=== PATIENT | male | born 1980 ===

== ENCOUNTER 2017-06-18 14:43 | Emergency (ER) | payer OTHER ==
[2017-06-18 14:51] VITALS: TEMP 98.8; O2SAT 100
--- NOTE | 2017-06-18 15:31 | C.PDOC ---
History Of Present Illness <Rama Mendoza - Last Filed: 06/18/17 16:22> <Nicki Diane - Last Filed: 06/18/17 16:33> 36 year old male with no past medical history presents with 5 days history of a tender mass on the back of his neck. He states that prior he had "something there" for about 3 years but then in the past 5 days it has grown in size and has become tender. He states that he thinks "it is from the oil in my hair". He says that sometimes if it is irritated it will drain fluid. He has not taken any medications to help with the pain. He has been taking Amoxicillin every 8 hours for 5 days which he bought previously in the [place]. He denies fevers/chills, rashes, or any other complaints. (Nicki Diane) <Rama Mendoza - Last Filed: 06/18/17 16:22> History Per: Patient History/Exam Limitations: no limitations Onset/Duration Of Symptoms: Days Current Symptoms Are (Timing): Still Present Location Of Injury: Posterior: Neck Quality Of Symptoms: Painful Severity: Mild Pain Scale Rating Of: 5 <Nicki Diane - Last Filed: 06/18/17 16:33> Time Seen by Provider: 06/18/17 15:05 Chief Complaint (Nursing): Abnormal Skin Integrity Past Medical History - Medical History PMH: No Chronic Diseases Surgical History: No Surg Hx Family History: States: No Known Family Hx - Social History Hx Tobacco Use: No Hx Alcohol Use: No Hx Substance Use: No - Immunization History Hx Tetanus Toxoid Vaccination: No Hx Influenza Vaccination: No Hx Pneumococcal Vaccination: No <Nicki Diane - Last Filed: 06/18/17 16:33> Vital Signs: Last Vital Signs Temp 98.8 F 06/18/17 14:50 Pulse 117 H 06/18/17 14:50 Resp 20 06/18/17 14:50 BP 131/94 H 06/18/17 14:50 Pulse Ox 100 06/18/17 16:14 Review Of Systems Constitutional: Negative for: Fever, Chills Eyes: Negative for: Vision Change Cardiovascular: Negative for: Chest Pain, Palpitations Respiratory: Negative for: Cough, Shortness of Breath Gastrointestinal: Negative for: Nausea, Vomiting, Abdominal Pain Genitourinary: Negative for: Dysuria Skin: Positive for: Other (mass on back of neck) Neurological: Negative for: Weakness, Numbness <Nicki Diane - Last Filed: 06/18/17 16:33> Physical Exam - Physical Exam Appears: Well, Non-toxic, No Acute Distress Skin: Normal Color, Warm, Dry, No Rash Head: Atraumatic, Normacephalic Eye(s): bilateral: Normal Inspection Oral Mucosa: Moist Neck: Other (3 cm well defined induated lesion on posterior R side neck, mildly tender) Cardiovascular: Rhythm Regular Respiratory: Normal Breath Sounds Gastrointestinal/Abdominal: Normal Exam, Bowel Sounds, Soft, No Tenderness Back: Normal Inspection Extremity: No Tenderness Neurological/Psych: Oriented x3, Normal Speech Gait: Steady <Nicki Diane - Last Filed: 06/18/17 16:33> ED Course And Treatment O2 Sat by Pulse Oximetry: 100 <Nicki Diane - Last Filed: 06/18/17 16:33> Medical Decision Making <Rama Mendoza - Last Filed: 06/18/17 16:22> <Nicki Diane - Last Filed: 06/18/17 16:33> Medical Decision Making: Plan: Likely lipoma or sebaceous cyst. Offered needle aspiration. Patient would rather follow up outpatient. (Nicki Diane) Disposition - Disposition Disposition Time: 16:22 - POA Present On Arrival: None <Rama Mendoza - Last Filed: 06/18/17 16:22> <Nicki Diane - Last Filed: 06/18/17 16:33> - Disposition Referrals: [facility] [Outside] Disposition: HOME/ ROUTINE Condition: GOOD Additional Instructions: Patient is to take Tylenol as needed for pain. He is to follow up at the [facility] and will need surgery referral for lipoma removal. Patient was instructed to return to the ED if symptoms persist or he develop fever or chills. Instructions: Lipoma (ED) Forms: Gen Discharge Inst Slovak - Clinical Impression Clinical Impression: Sebaceous cyst, Lipoma
[2017-06-18 16:36] VITALS: BP 132/82; PULSE 98; RESP 18
== END 2017-06-18 16:32 | disposition home or self-care (01) ==
LOC: C.ER 14:43
DX: L72.3 Sebaceous cyst (principal); D17.0 Benign lipomatous neoplasm of skin and subcutaneous tissue of head, face and neck

== ENCOUNTER 2017-07-07 15:03 | Emergency (ER) | payer OTHER ==
[2017-07-07 15:03] VITALS: BMI 35.2
--- NOTE | 2017-07-07 15:56 | C.PDOC ---
History Of Present Illness 36 yr old male presents to the ER for evaluation of a wound which was I&D. Patient states he had surgery by for lipoma abscess to the right side of the neck. Patient states he was concerned the packing had come out and wanted to get it checked out. Denies fever, nausea, vomiting, neck pain, back pain, weakness or numbness. Time Seen by Provider: 07/07/17 15:38 Chief Complaint (Nursing): Wound Check History Per: Patient History/Exam Limitations: no limitations Onset/Duration Of Symptoms: Days Ago Past Medical History Reviewed: Historical Data, Nursing Documentation, Vital Signs Vital Signs: Last Vital Signs Temp 97.3 F L 07/07/17 16:21 Pulse 70 07/07/17 16:21 Resp 16 07/07/17 16:21 BP 129/85 07/07/17 16:21 Pulse Ox 98 07/07/17 16:21 Family History: States: No Known Family Hx - Social History Hx Tobacco Use: No Hx Alcohol Use: No Hx Substance Use: No - Immunization History Hx Tetanus Toxoid Vaccination: No Hx Influenza Vaccination: No Hx Pneumococcal Vaccination: No Review Of Systems Except As Marked, All Systems Reviewed And Found Negative. Constitutional: Negative for: Fever Gastrointestinal: Negative for: Nausea, Vomiting Musculoskeletal: Negative for: Neck Pain, Back Pain Neurological: Negative for: Weakness, Numbness Physical Exam - Physical Exam Appears: Non-toxic, No Acute Distress Skin: Warm, Dry, No Rash, Other ((+) Neck Right Side - 1cm wound with packing in place. No erythema. No draining. ) Head: Atraumatic, Normacephalic Oral Mucosa: Moist Neck: Normal, Normal ROM, Supple Extremity: Normal ROM, No Swelling Neurological/Psych: Oriented x3, Normal Speech, Normal Motor Medical Decision Making Medical Decision Making: Patient was instructed to follow up with the surgeron as scheduled in 2 days, Disposition - Disposition Referrals: [facility] [Outside] Disposition: HOME/ ROUTINE Disposition Time: 16:11 Condition: GOOD Additional Instructions: Follow up with the medical doctor within 1-2 days. return if worsened. Instructions: Acute Wound Care (ED) Forms: [employer] [facility] (Portuguese) - Clinical Impression Clinical Impression: Wound check, abscess - PA / SPECIAL EDUCATION PRESCHOOL TEACHER / Resident Statement MD/DO has reviewed & agrees with the documentation as recorded. - Scribe Statement The provider has reviewed the documentation as recorded by the Scribe Jesica Mendez All medical record entries made by the Scribe were at my direction and personally dictated by me. I have reviewed the chart and agree that the record accurately reflects my personal performance of the history, physical exam, medical decision making, and the department course for this patient. I have also personally directed, reviewed, and agree with the discharge instructions and disposition.
[2017-07-07 16:23] VITALS: BP 129/85; PULSE 70; RESP 16; TEMP 97.3; O2SAT 98
== END 2017-07-07 16:23 | disposition home or self-care (01) ==
LOC: C.ER 15:03
DX: Z48.01 Encounter for change or removal of surgical wound dressing (principal)

== ENCOUNTER 2017-08-28 11:05 | Day surgery (SDC) | payer OTHER ==
[2017-08-18 14:46] VITALS: BMI 33.3
[2017-08-28] MEDS ORDERED: Lidocaine 1% Inj (20ml) ONE (13:23)
[2017-08-28] MEDS ORDERED: Bupivacaine/Epi 0.25%-1:200,000 10 ml PF inj IJ ONE (13:23)
[2017-08-28] MEDS ORDERED: ceFAZolin IV 2 gm in Dextrose 1 GM/50 ML BAG IVPB ONE (13:24)
[2017-08-28] MEDS ORDERED: Lactated Ringer's 1,000 ML IV ONE (13:30)
[2017-08-28] MEDS ORDERED: Midazolam 2 MG/2 ML VIAL ONE (13:32)
[2017-08-28] MEDS ORDERED: Propofol 10 mg/ml Inj (20 ML) ONE (13:32)
[2017-08-28] MEDS ORDERED: HYDROmorphone 0.5 mg/0.5 ml ISec IVP PRN (14:14)
--- NOTE | 2017-08-28 14:34 | PCM.SURG1 ---
Surgeon's Initial Post Op Note - Surgeon's Notes Surgeon: Dr. Arcos Bailer Operators Supervisor: Veronica Avila Type of Anesthesia: Local Anesthesia Administered By: Liz Pre-Operative Diagnosis: Sebaceous Cyst on neck Operative Findings: Sebaceous cyst 1 by 1 cm Post-Operative Diagnosis: Sebaceous cyst on neck Operation Performed: Excision of sebaceous cyst Specimen/Specimens Removed: Sebaceous cyst Estimated Blood Loss: EBL {In ML}: 1 Blood Products Given: N/A Drains Used: No Drains Post-Op Condition: Good Date of Surgery/Procedure: 08/28/17 Time of Surgery/Procedure: 14:33
[2017-08-28 14:49] VITALS: RESP 18; TEMP 97; O2SAT 100
[2017-08-28 15:21] VITALS: BP 124/80; PULSE 83
--- NOTE | 2017-08-31 06:27 | OP ---
PROCEDURE DATE: 08/28/2017 PREOPERATIVE DIAGNOSIS: Sebaceous cyst of the neck approximately 3 x 3 cm size. POSTOPERATIVE DIAGNOSIS: Sebaceous cyst of the neck approximately 4 x 3 cm size. PROCEDURES DONE: 1. Excision of sebaceous cyst of the posterior right neck 4 x 3 cm size. 2. Layered closure of the wound approximately 4 x 2 cm size. SURGEON: Freddie Arcos MD AUTOMOTIVE WHOLES[employer]S ADVISOR: JUAREZ KingY2 resident. TYPE OF ANESTHESIA: Local anesthesia plus sedation. ESTIMATED BLOOD LOSS: Around 10 mL. DRAINS: None. PATHOLOGY: Sebaceous cyst was sent intact for the pathology. COMPLICATIONS: None. INTRAOPERATIVE FINDINGS: The patient had approximately 4 x 3 cm irregular shaped large sebaceous cyst of the right posterior neck. DESCRIPTION OF PROCEDURE: On intraoperative steps, this is a 36-year-old male who was diagnosed with the sebaceous cyst of the right posterior neck and the patient was treated with IV antibiotics, as well as initial drainage and after resolution of the infection the patient was consented for the excision of sebaceous cyst and brought to the OR, placed in supine position, after induction of the anesthesia, the neck was prepped and draped in usual sterile fashion. An elliptical incision was made on the posterior right neck approximately 4 cm in size, upper and lower flap was created and medial and lateral dissection was done and sebaceous cyst was completely excised from underlying fascia and muscles and it was sent to the table for the pathology. The wound was irrigated and proper hemostasis was achieved. Now the cavity was closed with complex multilayer closure. Upper and lower flap was sutured to the underlying fascia and the muscles. The subcutaneous with underlying fascia, another layer of subcutaneous with 3-0 Vicryl, skin with the 4-0 Monocryl, and another layer of skin with 4-0 nylon interrupted suture and dry sterile dressing was applied. The patient tolerated the procedure well. Count of instrument was correct. There was no apparent complications. Freddie Arcos MD
== END 2017-08-28 15:21 | disposition home or self-care (01) ==
LOC: C.SDS 11:05
PROVIDERS: ATTEND Surgery Surgical Critical Care
DX: L72.3 Sebaceous cyst (principal)
CPT/HCPCS: 21556; 88304; J0690; J2250; J2704; J3010; J7120

== ENCOUNTER 2017-09-24 09:31 | Emergency (ER) | payer OTHER ==
[2017-09-24 09:31] VITALS: BMI 33.3
--- NOTE | 2017-09-24 09:55 | C.PDOC ---
History Of Present Illness 36 year old male presents to the ED for suture removal. Patient was seen by Dr. Arcos around 2 weeks ago for suture removal after undergoing resection of a cyst to the right base of his scalp. Following the suture removal, patient began noticing a sensation that there is still one stitch left, and presents to the ED for further evaluation. Patient denies fever, chills, pain, itching, swelling or drainage near wound site. Time Seen by Provider: 09/24/17 09:47 Chief Complaint (Nursing): Suture/Staple Removal History Per: Patient History/Exam Limitations: no limitations Current Symptoms Are (Timing): Still Present Location Of Injury: Posterior: Neck Quality Of Symptoms: denies: Painful, Itching, Swollen, Draining Additional History Per: Patient Past Medical History Reviewed: Historical Data, Nursing Documentation, Vital Signs Vital Signs: Last Vital Signs Temp 98.1 F 09/24/17 09:55 Pulse 94 H 09/24/17 09:55 Resp 18 09/24/17 09:55 BP 156/89 H 09/24/17 09:55 Pulse Ox 99 09/24/17 09:55 - Medical History PMH: Gastritis ("ON AND OFF"-NO MEDS. AT THIS TIME(08/20/15)) Denies: Chronic Kidney Disease Surgical History: Endoscopy Family History: States: Unknown Family Hx - Social History Hx Tobacco Use: No Hx Alcohol Use: No Hx Substance Use: No - Immunization History Hx Tetanus Toxoid Vaccination: No Hx Influenza Vaccination: No Hx Pneumococcal Vaccination: No Review Of Systems Constitutional: Negative for: Fever, Chills Skin: Positive for: Other (suture removal from right base of scalp ) Physical Exam - Physical Exam Appears: Non-toxic, No Acute Distress Skin: Normal Color, Warm, Dry Head: Atraumatic, Normacephalic Eye(s): bilateral: Normal Inspection Neck: Other (well-healed incision to base of right scalp with outward protrusion of one clear (possibly absorbable) suture ) Neurological/Psych: Oriented x3, Normal Speech, Normal Cognition ED Course And Treatment O2 Sat by Pulse Oximetry: 99 (on RA) Pulse Ox Interpretation: Normal Medical Decision Making Medical Decision Making: Progress: One suture removed from right base of scalp by me. Patient tolerated well with no complaints. Disposition Counseled Patient/Family Regarding: Diagnosis - Disposition Referrals: Freddie Arcos MD [Staff Provider] - Disposition: HOME/ ROUTINE Disposition Time: 09:55 Condition: STABLE Forms: [facility] (Grenadian), Gen Discharge Inst Grenadian - POA Present On Arrival: None - Clinical Impression Clinical Impression: Removal of suture - Scribe Statement The provider has reviewed the documentation as recorded by the Scribe (Rocio Roa) Provider Attestation: All medical record entries made by the Scribe were at my direction and personally dictated by me. I have reviewed the chart and agree that the record accurately reflects my personal performance of the history, physical exam, medical decision making, and the department course for this patient. I have also personally directed, reviewed, and agree with the discharge instructions and disposition.
[2017-09-24 09:57] VITALS: BP 156/89; PULSE 94; RESP 18; TEMP 98.1; O2SAT 99
== END 2017-09-24 10:05 | disposition home or self-care (01) ==
LOC: C.ER 09:31
DX: Z48.02 Encounter for removal of sutures (principal)

== ENCOUNTER 2017-11-16 08:08 | Emergency (ER) | payer OTHER ==
[2017-11-16 08:09] VITALS: BMI 33.3
[2017-11-16 08:13] VITALS: RESP 16; O2SAT 100
--- NOTE | 2017-11-16 09:15 | C.PDOC ---
History Of Present Illness 36 year old male with a PMHx of excision of sebaceous cyst on 08/28/[address] Arcos presents to the ED with complaints of drainage from surgery site since yesterday. Patient reports patient was seen last month by Dr. Arcos because he felt the site was not healing well, patient was reassured by Dr. Arcos to give the healing more time. Patient completed a course of Amoxicillin and states no relief last month. Patient denies pain, fever, chills, or other complaints at this time. Time Seen by Provider: 11/16/17 08:22 Chief Complaint (Nursing): ENT Problem History Per: Patient History/Exam Limitations: no limitations Onset/Duration Of Symptoms: Persistent (1 month), Worse Since (yesterday) Current Symptoms Are (Timing): Still Present Previous Symptoms: Prior Surgery (excision of sebaceous cyst) Associated Symptoms: None Exacerbating Factor(s): Nothing Recent travel outside of the [place]: No Additional History Per: Prior Records Past Medical History Reviewed: Historical Data, Nursing Documentation, Vital Signs Vital Signs: Last Vital Signs Temp 99.0 F 11/16/17 09:40 Pulse 94 H 11/16/17 09:40 Resp 16 11/16/17 09:40 BP 128/87 11/16/17 09:40 Pulse Ox 100 11/16/17 15:41 - Medical History PMH: Gastritis ("ON AND OFF"-NO MEDS. AT THIS TIME(08/20/15)) Surgical History: Endoscopy Family History: States: Unknown Family Hx - Social History Hx Tobacco Use: No Hx Alcohol Use: No Hx Substance Use: No - Immunization History Hx Tetanus Toxoid Vaccination: No Hx Influenza Vaccination: No Hx Pneumococcal Vaccination: No Review Of Systems Constitutional: Negative for: Fever, Chills Cardiovascular: Negative for: Chest Pain, Palpitations Respiratory: Negative for: Cough, Shortness of Breath Gastrointestinal: Negative for: Nausea, Vomiting, Abdominal Pain, Diarrhea Skin: Positive for: Other (drainage from cyst removal site) Physical Exam - Physical Exam Appears: Non-toxic, No Acute Distress Skin: Warm, Dry, No Rash, Other ((+) mildly indurated healed incision to the base of the right scalp with no erythema, fluctance, or drainage) Head: Atraumatic, Normacephalic, No Tenderness, No Swelling Eye(s): bilateral: Normal Inspection, PERRL, EOMI Nose: Normal Oral Mucosa: Moist Neck: Supple Chest: Symmetrical Extremity: Normal ROM, No Tenderness Neurological/Psych: Oriented x3, Normal Speech, Normal Cognition ED Course And Treatment O2 Sat by Pulse Oximetry: 100 (RA) Pulse Ox Interpretation: Normal Medical Decision Making Medical Decision Making: Patient was evaluated by Customer Service Correspondence Clerk , Dr Ward, who notes no abx needed and pt can f/u in clinic on Thursday. Disposition - Disposition Referrals: Freddie Arcos MD [Staff Provider] - Disposition: HOME/ ROUTINE Disposition Time: 09:23 Condition: STABLE Additional Instructions: Follow up in the clinic with Dr Stanley on Thursday next week. Return to ER if symptoms persist or worsen . Apply warm compresses. Farzana un seguimiento en la clnica con el Dr. Stanley el baljeet de la prxima semana. Regrese a la den de emergencias si los sntomas persisten o empeoran. Aplique compresas tibias. Instructions: Acute Wound Care (ED) Forms: [employer] (Albanian) Print Language: MARTINIQUAIS - Clinical Impression Clinical Impression: Wound check, abscess - PA / LAB INSTRUCTOR / Resident Statement MD/DO has reviewed & agrees with the documentation as recorded. - Scribe Statement The provider has reviewed the documentation as recorded by the Scribe Amelie Holt All medical record entries made by the Scribe were at my direction and personally dictated by me. I have reviewed the chart and agree that the record accurately reflects my personal performance of the history, physical exam, medical decision making, and the department course for this patient. I have also personally directed, reviewed, and agree with the discharge instructions and disposition.
[2017-11-16 09:40] VITALS: BP 128/87; PULSE 94; TEMP 99
== END 2017-11-16 09:40 | disposition home or self-care (01) ==
LOC: C.ER 08:08
DX: Z51.89 Encounter for other specified aftercare (principal); L02.91 Cutaneous abscess, unspecified

== ENCOUNTER 2018-01-01 13:42 | Emergency (ER) | payer OTHER, SELFPAY ==
[2018-01-01 13:42] VITALS: BMI 33.3
[2018-01-01 13:56] VITALS: TEMP 98.2; O2SAT 100
[2018-01-01] MEDS ORDERED: Belladonna-Phenobarbital PO STA (14:33)
[2018-01-01] MEDS ORDERED: Aluminum Hydroxide/Magnesium Hydroxide Susp (30 mL) PO STA (14:33)
[2018-01-01] MEDS ORDERED: Sodium Chloride 0.9% 1,000 ML IV ONE (14:33)
[2018-01-01] MEDS ORDERED: Aluminum Hydroxide/Magnesium Hydroxide Susp (30 mL) ONE (15:07)
[2018-01-01] MEDS ORDERED: Belladonna-Phenobarbital ONE (15:07)
[2018-01-01] MEDS ORDERED: Sodium Chloride 0.9% 1,000 ML ONE (15:08)
[2018-01-01 15:32] LABS: EOS % 0.1 % (0.0-4.0); LYMPH # 1.3 K/uL (1.0-4.3); MONO # 0.4 K/uL (0.0-0.8); RBC 5.22 Mil/uL (4.40-5.90)
[2018-01-01 15:42] LABS: BASO % 0.4 % (0.0-2.0); HEMOGLOBIN 16.3 g/dL (12.0-18.0); LYMPH % 12.8 % (20.0-40.0); MEAN CELL VOLUME 88.6 fL (80.0-94.0); MEAN CORPUSCULAR HEMOGLOBIN 31.2 pg (27.0-31.0); MEAN CORPUSCULAR HGB CONC 35.2 g/dL (33.0-37.0); MEAN PLATELET VOLUME 7.7 fL (7.2-11.7); NEUT # 8.5 K/uL (1.8-7.0); NEUT % 82.7 % (50.0-75.0); NRBC % 0.2 % (0.0-2.0); RED CELL DISTRIBUTION WIDTH 12.9 % (11.5-14.5); WHITE BLOOD COUNT 10.3 K/uL (4.8-10.8)
[2018-01-01 16:32] LABS: ALB/GLOB RATIO 1.2 (1.0-2.1); ALBUMIN 4.3 g/dL (3.5-5.0); ALT/SGPT 45 U/L (21-72); AST/SGOT 39 U/L (17-59); BLOOD UREA NITROGEN 12 mg/dL (9-20); CALCIUM 9.3 mg/dl (8.6-10.4); GFR AFRICAN-AMERICAN > 60; GFR NON-AFRICAN AMERICAN > 60; LIPASE 235 U/L (23-300)
[2018-01-01 16:56] VITALS: BP 129/78; PULSE 89; RESP 18
--- NOTE | 2018-01-01 16:57 | C.PDOC ---
History Of Present Illness 37 y/o male, with history of epigastritis, presents to the ER complaining of epigastric pain which has been present for 1 day.Patient states he also had 3 episodes of vomiting and mild nausea today. Patient denies having fever, blood in stool/urine, and change in diet. Chief Complaint (Nursing): Abdominal Pain History Per: Patient History/Exam Limitations: no limitations Onset/Duration Of Symptoms: Days Current Symptoms Are (Timing): Still Present Severity: Moderate Past Medical History Reviewed: Historical Data, Nursing Documentation, Vital Signs Vital Signs: Last Vital Signs Temp 98.2 F 01/01/18 13:51 Pulse 89 01/01/18 16:56 Resp 18 01/01/18 16:56 BP 129/78 01/01/18 16:56 Pulse Ox 100 01/01/18 17:10 - Medical History PMH: Gastritis ("ON AND OFF"-NO MEDS. AT THIS TIME(08/20/15)) Denies: Chronic Kidney Disease Surgical History: Endoscopy Family History: States: No Known Family Hx - Social History Hx Tobacco Use: No Hx Alcohol Use: No Hx Substance Use: No - Immunization History Hx Tetanus Toxoid Vaccination: No Hx Influenza Vaccination: No Hx Pneumococcal Vaccination: No Review Of Systems Except As Marked, All Systems Reviewed And Found Negative. Constitutional: Negative for: Fever, Chills Gastrointestinal: Positive for: Vomiting, Abdominal Pain Genitourinary: Negative for: Dysuria, Hematuria Physical Exam - Physical Exam Appears: Non-toxic, No Acute Distress Skin: Normal Color, Warm Head: Atraumatic, Normacephalic Eye(s): bilateral: Normal Inspection Nose: Normal Oral Mucosa: Moist Neck: Supple Chest: Symmetrical Cardiovascular: Rhythm Regular Respiratory: Normal Breath Sounds, No Accessory Muscle Use, No Rales, No Rhonchi , No Wheezing Gastrointestinal/Abdominal: Normal Exam, Soft, Tenderness (epigastric tenderness ) Extremity: Normal ROM Neurological/Psych: Oriented x3, Normal Speech, Normal Motor, Normal Sensation ED Course And Treatment - Laboratory Results Result Diagrams: 01/01/18 15:29 01/01/18 15:29 O2 Sat by Pulse Oximetry: 100 (RA) Pulse Ox Interpretation: Normal Medical Decision Making Medical Decision Making: Plan: --Labs --Pepcid --Zofran Disposition - Disposition Referrals: [facility] [Outside] [facility] [Outside] Disposition: HOME/ ROUTINE Disposition Time: 16:30 Condition: IMPROVED Additional Instructions: Thank you for letting us take care of you today. The emergency medical care you received today was directed at your acute symptoms. If you were prescribed any medication, please fill it and take as directed. It may take several days for your symptoms to resolve. Return to the Emergency Department if your symptoms worsen, do not improve, or if you have any other problems. Please contact your doctor or call one of the physicians/clinics you have been referred to that are listed on the Patient Visit Information form that is included in your discharge packet. Bring any paperwork you were given at discharge with you along with any medications you are taking to your follow up visit. Our treatment cannot replace ongoing medical care by a primary care provider (PCP) outside of the emergency department. Thank you for allowing the [facility] team to be part of your care today. Follow up with the clinic in 3-4 days for re-evaluation and further management. Delmy por dejarnos atenderlo hoy. La atencin mdica de emergencia que recibi hoy estaba dirigida a mari sntomas agudos. Si le prescribieron algn medicamento, llnelo y tome segn las indicaciones. Mari sntomas pueden tardar varios armando en resolverse. Regrese al Departamento de Emergencia si mari s ntomas empeoran, no mejoran o si tiene algn otro problema. Comunquese con alvarado mdico o llame a андрей de los mdicos / clnicas a los que sewell sido referido que figura en el formulario de Informacin de visita del paciente que se incluye en alvarado paquete de curry. Traiga todos los documentos que recibi al momento del curry junto con los medicamentos que est tomando en alvarado visita de seguimiento. Nuestro tratamiento no puede reemplazar la atencin mdica en curso por parte de un proveedor de atencin primaria (PCP) fuera del departamento de emergencias. Delmy por permitir que el equipo de [facility] sea parte de alvarado cuidado hoy. Farzana un seguimiento con la clnica en 3-4 armando para jimmy nueva evaluacin y ms administracin. Prescriptions: Ranitidine HCl [Zantac] 150 mg PO BID #20 tablet Instructions: Gastritis (ED) Forms: Gen Discharge Inst Australian Print Language: YORUBA - Clinical Impression Clinical Impression: Gastritis - Scribe Statement The provider has reviewed the documentation as recorded by the Scribe Doris Chávez Provider Attestation: All medical record entries made by the Scribe were at my direction and personally dictated by me. I have reviewed the chart and agree that the record accurately reflects my personal performance of the history, physical exam, medical decision making, and the department course for this patient. I have also personally directed, reviewed, and agree with the discharge instructions and disposition.
== END 2018-01-01 16:56 | disposition home or self-care (01) ==
LOC: C.ER 13:42
DX: K29.70 Gastritis, unspecified, without bleeding (principal)
CPT/HCPCS: 80053; 83690; 85025; 96361; 96374; 96375; 99284; J2405; J7040

== ENCOUNTER 2018-01-02 05:55 | Emergency (ER) | payer SELFPAY ==
[2018-01-02 05:56] VITALS: BMI 33.3
[2018-01-02 06:04] VITALS: BP 137/98; PULSE 85; RESP 18; TEMP 97.9; O2SAT 100
--- NOTE | 2018-01-02 06:13 | C.PDOC ---
History Of Present Illness 37 year old male with PMHx of gastric ulcers presents to the ED c/o epigastric pain. Patient reports he was seen in the ED on 12/31/2016 and states that his symptoms have not improved since. Patient states his pain worsened. Patient denies fever, chills, nausea, vomit, diarrhea, back pain. Chief Complaint (Nursing): Abdominal Pain History Per: Patient History/Exam Limitations: no limitations Onset/Duration Of Symptoms: Days Current Symptoms Are (Timing): Still Present Location Of Pain/Discomfort: Diffuse Radiation Of Pain To:: None Quality Of Discomfort: "Pain" Exacerbating Factors: None Alleviating Factors: None Recent travel outside of the [place]: No Additional History Per: Patient Past Medical History Reviewed: Historical Data, Nursing Documentation, Vital Signs Vital Signs: Last Vital Signs Temp 97.9 F 01/02/18 06:01 Pulse 85 01/02/18 06:01 Resp 18 01/02/18 06:01 BP 137/98 H 01/02/18 06:01 Pulse Ox 100 01/02/18 06:56 - Medical History PMH: Gastritis ("ON AND OFF"-NO MEDS. AT THIS TIME(08/20/15)) Denies: Chronic Kidney Disease Surgical History: Endoscopy Family History: States: Unknown Family Hx - Social History Hx Tobacco Use: No Hx Alcohol Use: No Hx Substance Use: No - Immunization History Hx Tetanus Toxoid Vaccination: No Hx Influenza Vaccination: No Hx Pneumococcal Vaccination: No Review Of Systems Constitutional: Negative for: Fever, Chills Cardiovascular: Negative for: Chest Pain, Palpitations Respiratory: Negative for: Cough, Shortness of Breath Gastrointestinal: Positive for: Abdominal Pain. Negative for: Nausea, Vomiting , Diarrhea Musculoskeletal: Negative for: Back Pain Skin: Negative for: Rash Physical Exam - Physical Exam Appears: Non-toxic, No Acute Distress Skin: Normal Color, Warm, Dry Head: Atraumatic, Normacephalic Eye(s): bilateral: Normal Inspection Nose: No Discharge, No Deformity Oral Mucosa: Moist Neck: Normal ROM, Supple Chest: Symmetrical Cardiovascular: Rhythm Regular, No Murmur Respiratory: Normal Breath Sounds, No Rales, No Rhonchi, No Wheezing Gastrointestinal/Abdominal: Soft, Tenderness (epigastric), No Guarding, No Rebound Extremity: Normal ROM, No Deformity, No Swelling Neurological/Psych: Oriented x3, Normal Speech, Normal Cognition Gait: Steady ED Course And Treatment - Laboratory Results Result Diagrams: 01/02/18 06:32 01/02/18 06:32 O2 Sat by Pulse Oximetry: 100 (On RA) Pulse Ox Interpretation: Normal Medical Decision Making Medical Decision Making: Impression: abdominal pain Plan: * Labs * Carafate 1 gm PO * Pepcid 20 mg PO Disposition Counseled Patient/Family Regarding: Diagnosis - Disposition Referrals: [facility] [Outside] Disposition: HOME/ ROUTINE Disposition Time: 06:45 Condition: STABLE Prescriptions: Pantoprazole Sodium [Protonix] 40 mg PO DAILY #20 ect Phenobarb/Hyoscy/Atropine/Scop [ Tablet] 16.2 mg PO Q6 #14 tablet Sucralfate [Carafate Oral Susp] 2 tsp PO QID #200 ml Sucralfate [Carafate] 1 gm PO BID #14 oral.susp Instructions: Gastritis (DC), Diet for Ulcers and Gastritis (GEN), Abdominal Pain (ED) Forms: [facility] (Chilean), Gen Discharge Inst Albanian Print Language: URUGUAYAN - POA Present On Arrival: None - Clinical Impression Clinical Impression: Abdominal pain, Gastritis - Scribe Statement The provider has reviewed the documentation as recorded by the Scribe Prakash Mtz All medical record entries made by the Angelibe were at my direction and personally dictated by me. I have reviewed the chart and agree that the record accurately reflects my personal performance of the history, physical exam, medical decision making, and the department course for this patient. I have also personally directed, reviewed, and agree with the discharge instructions and disposition.
[2018-01-02] MEDS ORDERED: Sucralfate 1 gm/10 ml Oral Susp UD PO STA (06:14)
[2018-01-02 06:41] LABS: BASO # 0.1 K/uL (0.0-0.2); EOS # 0.1 K/uL (0.0-0.7); HEMOGLOBIN 16.3 g/dL (12.0-18.0); LYMPH # 2.5 K/uL (1.0-4.3); LYMPH % 30.7 % (20.0-40.0); MEAN CORPUSCULAR HEMOGLOBIN 31.1 pg (27.0-31.0); MONO # 0.6 K/uL (0.0-0.8); MONO % 7.6 % (0.0-10.0); NEUT # 4.9 K/uL (1.8-7.0); NEUT % 59.7 % (50.0-75.0); NRBC % 0.2 % (0.0-2.0); RBC 5.23 Mil/uL (4.40-5.90); RED CELL DISTRIBUTION WIDTH 13.3 % (11.5-14.5); WHITE BLOOD COUNT 8.2 K/uL (4.8-10.8)
[2018-01-02] MEDS ORDERED: Belladonna-Phenobarbital PO STA (06:50)
[2018-01-02 06:54] LABS: ALB/GLOB RATIO 1.2 (1.0-2.1); ALBUMIN 4.3 g/dL (3.5-5.0); ALT/SGPT 41 U/L (21-72); AST/SGOT 31 U/L (17-59); BLOOD UREA NITROGEN 14 mg/dL (9-20); CALCIUM 9.2 mg/dl (8.6-10.4); GFR AFRICAN-AMERICAN > 60; GFR NON-AFRICAN AMERICAN > 60; LIPASE 287 U/L (23-300)
[2018-01-02] MEDS ORDERED: Belladonna-Phenobarbital ONE (06:55)
== END 2018-01-02 07:06 | disposition home or self-care (01) ==
LOC: C.ER 05:55
DX: R10.13 Epigastric pain (principal)

== ENCOUNTER 2018-01-04 19:06 | Emergency (ER) | payer SELFPAY ==
[2018-01-04 19:07] VITALS: BMI 33.3
[2018-01-04 19:34] VITALS: RESP 18
[2018-01-04] MEDS ORDERED: Alum-Mag Hydrox-Simethicone Susp (30 mL) ONE (23:12)
[2018-01-04] MEDS ORDERED: Aluminum Hydroxide/Magnesium Hydroxide Susp (30 mL) PO STA (23:13)
--- NOTE | 2018-01-04 23:44 | C.PDOC ---
History Of Present Illness 37 year old male presents to the ER with a complaint of epigastric pain for the past 5 days. Patient has been seen two times in the ER since the onset of the pain, he had labs done that were negative and was discharged home with Rx and follow up instructions. He reports he went to the clinic today and they gave him an appointment to be seen tomorrow, however, he is requesting something for the pain until then. Denies nausea, vomiting, diarrhea, constipation or fever. Time Seen by Provider: 01/04/18 22:35 Chief Complaint (Nursing): Abdominal Pain History Per: Patient History/Exam Limitations: no limitations Onset/Duration Of Symptoms: Days Current Symptoms Are (Timing): Still Present Location Of Pain/Discomfort: Epigastric Radiation Of Pain To:: None Quality Of Discomfort: Unable To Describe Associated Symptoms: denies: Fever, Chills, Nausea, Vomiting Exacerbating Factors: None Alleviating Factors: None Recent travel outside of the [place]: No Past Medical History Reviewed: Historical Data, Nursing Documentation, Vital Signs Vital Signs: Last Vital Signs Temp 98.6 F 01/04/18 23:55 Pulse 75 01/04/18 23:55 Resp 18 01/04/18 23:55 BP 124/71 01/04/18 23:55 Pulse Ox 96 01/05/18 00:43 - Medical History PMH: Gastritis ("ON AND OFF"-NO MEDS. AT THIS TIME(08/20/15)) Surgical History: Endoscopy Family History: States: Unknown Family Hx - Social History Hx Tobacco Use: No Hx Alcohol Use: No Hx Substance Use: No - Immunization History Hx Tetanus Toxoid Vaccination: No Hx Influenza Vaccination: No Hx Pneumococcal Vaccination: No Review Of Systems Constitutional: Negative for: Fever, Chills Gastrointestinal: Positive for: Abdominal Pain. Negative for: Nausea, Vomiting Physical Exam - Physical Exam Appears: Non-toxic, No Acute Distress Skin: Normal Color, Warm, Dry Head: Atraumatic, Normacephalic Eye(s): bilateral: Normal Inspection Oral Mucosa: Moist Chest: Symmetrical, No Tenderness Cardiovascular: Rhythm Regular Respiratory: Normal Breath Sounds, No Rales, No Rhonchi, No Wheezing Gastrointestinal/Abdominal: Soft, Tenderness (minimal epigastric), No Distention , No Guarding, No Rebound Back: No CVA Tenderness Neurological/Psych: Oriented x3, Normal Speech ED Course And Treatment O2 Sat by Pulse Oximetry: 96 (room air) Pulse Ox Interpretation: Normal Progress Note: Maalox and viscous lidocaine administered. Patient is resting comfortably in the ER in no acute distress. Abd now soft and NT. Pt AAO x3 in NAD, advised to follow up at the clinic tomorrow as scheduled for further management or return if symptoms worsen. Reassessment Condition: Improved Disposition Counseled Patient/Family Regarding: Diagnosis, Need For Followup, Rx Given - Disposition Disposition: HOME/ ROUTINE Disposition Time: 23:42 Condition: STABLE Additional Instructions: Continue current management Keep appointment to medical clinic tomorrow Return to ER if worse Instructions: Gastritis (ED) Forms: [facility] (Tamazight) Print Language: YEMENI - Clinical Impression Clinical Impression: Chronic epigastric pain - PA / DIRECTORY CLERK / Resident Statement MD/DO has reviewed & agrees with the documentation as recorded. - Scribe Statement The provider has reviewed the documentation as recorded by the Scribkaryn Fabian All medical record entries made by the Scribe were at my direction and personally dictated by me. I have reviewed the chart and agree that the record accurately reflects my personal performance of the history, physical exam, medical decision making, and the department course for this patient. I have also personally directed, reviewed, and agree with the discharge instructions and disposition.
[2018-01-04 23:57] VITALS: BP 124/71; PULSE 75; TEMP 98.6
[2018-01-05 00:36] VITALS: O2SAT 96
== END 2018-01-04 23:58 | disposition home or self-care (01) ==
LOC: C.ER 19:06
DX: R10.13 Epigastric pain (principal)

== ENCOUNTER 2018-01-06 09:06 | Emergency (ER) | payer SELFPAY ==
[2018-01-06 09:07] VITALS: BMI 33.3
[2018-01-06 09:42] VITALS: RESP 16; TEMP 98.9
--- NOTE | 2018-01-06 10:23 | C.PDOC ---
History Of Present Illness 37 y/o M c PMHx gastritis p/w epigastric pain x 2 weeks. Here twice in past week for same symptoms, labs unremarkable, feels better after symptomatic treatment and discharged twice and had follow up with clinic this week and has prescription for CT abdomen/pelvis, which is scheduled for Thursday and GI scheduled for Thursday but is requesting CT now. Denies fever, chills, chest pain, dyspnea, vomiting, diarrhea, dysuria. Time Seen by Provider: 01/06/18 10:09 Chief Complaint (Nursing): Abdominal Pain Past Medical History Vital Signs: Last Vital Signs Temp 98.9 F 01/06/18 09:38 Pulse 76 01/06/18 09:38 Resp 16 01/06/18 09:38 BP 130/83 01/06/18 09:38 Pulse Ox 100 01/06/18 10:23 - Medical History PMH: Gastritis ("ON AND OFF"-NO MEDS. AT THIS TIME(08/20/15)) Denies: Chronic Kidney Disease Surgical History: Endoscopy Family History: States: Unknown Family Hx - Social History Hx Tobacco Use: No Hx Alcohol Use: No Hx Substance Use: No - Immunization History Hx Tetanus Toxoid Vaccination: No Hx Influenza Vaccination: No Hx Pneumococcal Vaccination: No Review Of Systems Except As Marked, All Systems Reviewed And Found Negative. Constitutional: Negative for: Fever Cardiovascular: Negative for: Chest Pain Physical Exam - Physical Exam Additional Physical Exam Comments: Gen: NAD Head: NC Eyes: Nonicteric ENT: MMM Neck: Supple Chest: No tenderness CV: Regular rate Abdomen: Epigastric tenderness without guarding or rebound. Soft. Resp: No accessory muscle use. Ext: No swelling. Neuro: No focal deficit ED Course And Treatment O2 Sat by Pulse Oximetry: 100 Medical Decision Making Medical Decision Making: Keep appointment for CT. Vital signs unremarkable, no change in symptoms from previous. Disposition - Disposition Disposition: HOME/ ROUTINE Disposition Time: 11:54 Condition: STABLE Prescriptions: Aluminum Hydroxide/Magnesium [Maalox Plus 30 ml] 30 ml PO Q8H #360 ml Instructions: Epigastric Pain (ED) Forms: [employer] (Kyrgyz) - Clinical Impression Clinical Impression: Epigastric pain
[2018-01-06] MEDS ORDERED: Alum-Mag Hydrox-Simethicone Susp (30 mL) PO STA (11:39)
[2018-01-06] MEDS ORDERED: Alum-Mag Hydrox-Simethicone Susp (30 mL) ONE (11:48)
[2018-01-06 12:09] VITALS: BP 128/82; PULSE 84; O2SAT 98
== END 2018-01-06 12:09 | disposition home or self-care (01) ==
LOC: C.ER 09:06
DX: R10.13 Epigastric pain (principal)

== ENCOUNTER 2018-02-01 06:40 | Day surgery (SDC) | payer SELFPAY ==
[2018-02-01 07:12] VITALS: BMI 31.5
[2018-02-01] MEDS ORDERED: Midazolam 2 MG/2 ML VIAL ONE (08:29)
[2018-02-01] MEDS ORDERED: Propofol 10 mg/ml Inj (20 ML) ONE (08:29)
[2018-02-01 08:50] VITALS: TEMP 98.7
[2018-02-01 09:11] VITALS: RESP 15
[2018-02-01 10:03] VITALS: BP 107/76; PULSE 80; O2SAT 97
== END 2018-02-01 09:55 | disposition home or self-care (01) ==
LOC: C.ENDO 06:40
PROVIDERS: ATTEND Internal Medicine
DX: R10.13 Epigastric pain (principal); K29.70 Gastritis, unspecified, without bleeding
CPT/HCPCS: 43239; 88305; 88313; 88342; J2250; J2704

== ENCOUNTER 2018-02-19 09:10 | Day surgery (SDC) | payer SELFPAY ==
[2018-02-19] MEDS ORDERED: Midazolam 2 MG/2 ML VIAL ONE (10:17)
[2018-02-19] MEDS ORDERED: Propofol 10 mg/ml Inj (20 ML) ONE (10:17)
[2018-02-19] MEDS ORDERED: Bupivacaine 0.25% Inj(30mL) ONE (11:59)
[2018-02-19] MEDS ORDERED: ceFAZolin IV 1 gm in Dextrose 2 GM/100 ML BAG IVPB ONE (11:59)
[2018-02-19] MEDS ORDERED: Lidocaine/Epinephrine 1% 1:100000 10 ML IJ ONE (12:00)
[2018-02-19] MEDS ORDERED: Neostigmine Methylsulfate 3mg/3ml Syringe IV ONE (13:50)
[2018-02-19] MEDS ORDERED: Oxycodone/Acetaminophen 5/325 mg Tab PO PRN (14:19)
--- NOTE | 2018-02-19 14:19 | PCM.SURG1 ---
Surgeon's Initial Post Op Note - Surgeon's Notes Surgeon: Dr Arcos General Assembler Installer: Dr Solorio PGY3 Type of Anesthesia: General Endo Pre-Operative Diagnosis: cholelithiasis Operative Findings: see report Post-Operative Diagnosis: as above Operation Performed: laparoscopic cholecystectomy. laparoscopic lysis of adhesions Specimen/Specimens Removed: gallbladder Estimated Blood Loss: EBL {In ML}: 10 Blood Products Given: N/A Drains Used: No Drains Post-Op Condition: Good Date of Surgery/Procedure: 02/19/18 Time of Surgery/Procedure: 14:19
[2018-02-19] MEDS: HYDROmorphone 0.5 mg/0.5 ml ISec IVP PRN ×2 (14:32→15:05)
[2018-02-19 16:16] VITALS: RESP 16
[2018-02-19 17:43] VITALS: BP 123/76; PULSE 86; TEMP 97.6; O2SAT 98
--- NOTE | 2018-02-21 22:27 | OP ---
PROCEDURE DATE: 02/19/2018 PREOPERATIVE DIAGNOSES: Chronic cholecystitis and cholelithiasis. POSTOPERATIVE DIAGNOSES: 1. Chronic cholecystitis and cholelithiasis. 2. Extensive post infectious omental and peritoneal abrasions. PROCEDURE DONE: 1. Laparoscopic cholecystectomy. 2. Laparoscopic extensive lysis of adhesions and laparoscopic enterolysis. SURGEON: Freddie Arcos MD REED PRESS FEEDER: Fili Solorio, PGY-3 resident. TYPE OF ANESTHESIA: General endotracheal tube anesthesia. ESTIMATED BLOOD LOSS: Around 20 mL. DRAINS: None. PATHOLOGY: In the pathology, gallbladder with the gallstone was sent for the pathology. COMPLICATIONS: None. INTRAOPERATIVE FINDINGS: The patient had a chronic cholecystitis and chronic cholelithiasis. The patient also had extensive omentum adjacent to the colon and to the gallbladder as well as the duodenum and colon was firmly attached to the gallbladder and extensive lysis of adhesion was done. DESCRIPTION OF PROCEDURE: On intraoperative steps, this is a 37-year-old male who was diagnosed with chronic cholecystitis and cholelithiasis and patient was consented for laparoscopic cholecystectomy possible open, brought into the OR, placed supine on the operating table. After the induction of anesthesia, the abdomen was prepped and draped in the usual sterile fashion. Supraumbilical transverse incision was made after incising the skin, subcutaneous tissue, and the fascia. Og port was placed and pneumoperitoneum was created. Another 12-mm port was placed in the midline below costal margin and two 5 mm port was placed in the midclavicular and anterior axillary line. After that, a grasper and dissector were introduced, and patient found to have extensive omental adhesion as well as adhesion of the colon and duodenum with the gallbladder. First lysis of adhesion was done and an enterolysis was done and gallbladder was retracted cranially, and the Calot's triangle dissection was done. Cystic duct and cystic artery was identified and clipped at 3 places and cut in between 2 clips nearby gallbladder. Gallbladder was dissected free from the gallbladder fossa, taken in an EndoCatch bag, taken out through the umbilical port site and sent off the table for the pathology. There was no apparent complication. Count of the instrument and gauze was correct. There was a proper hemostasis in each and every part of the procedure. The gallbladder was taken out through the umbilical port site and sent off the table for pathology. After that, all the port was taken out under vision, pneumo was deflated. The umbilical port site was closed in a two layers and the fascia with 0 Vicryl interrupted suture, skin with a 4-0 Monocryl, and dry sterile dressing was applied. The patient tolerated the procedure well. Count of the instrument and gauze was correct. There was no apparent complication. Freddie Arcos MD
== END 2018-02-19 18:45 | disposition home or self-care (01) ==
LOC: C.SDS 09:10
PROVIDERS: ATTEND Surgery Surgical Critical Care
DX: K80.10 Calculus of gallbladder with chronic cholecystitis without obstruction (principal)
CPT/HCPCS: 36415; 47562; 85610; 85730; 88304; J0690; J1170; J2250; J2405; J2704; J2710; J3010

== ENCOUNTER 2018-09-14 05:53 | Day surgery (SDC) | payer SELFPAY ==
[2018-09-14 06:26] VITALS: PULSE 84
[2018-09-14] MEDS ORDERED: ceFAZolin IV 1 gm in Dextrose 0 GM/0 ML BAG IVPB ONE (07:19)
[2018-09-14] MEDS ORDERED: Lidocaine/Epinephrine 1% 1:100000 10 ML IJ ONE ×2 (07:19)
[2018-09-14] MEDS ORDERED: Bupivacaine HCl 0.25% PF (10 ml) Inj ONE (07:39)
[2018-09-14] MEDS ORDERED: Lidocaine Hydrochloride 0 ML INJ ONE (07:39)
[2018-09-14 09:18] VITALS: BP 112/86; RESP 18; TEMP 99; O2SAT 98
--- NOTE | 2018-09-14 09:34 | PCM.SURG1 ---
Surgeon's Initial Post Op Note - Surgeon's Notes Surgeon: Alex Roa Clinical Engineering Director: PGY4 Type of Anesthesia: Local Pre-Operative Diagnosis: infected sebaceous cyst remnant Operative Findings: infected sebaceous cyst remnant,scar tissue Post-Operative Diagnosis: infected sebaceous cyst remnant Operation Performed: Excision of infected sebaceous cyst remnant of R occiput Specimen/Specimens Removed: Infected sebaceous cyst remnant of R occiput Estimated Blood Loss: EBL {In ML}: 5 Blood Products Given: N/A Drains Used: No Drains Post-Op Condition: Good Date of Surgery/Procedure: 09/14/18 Time of Surgery/Procedure: 08:02
== END 2018-09-14 09:34 | disposition home or self-care (01) ==
LOC: C.SDS 05:53
PROVIDERS: ATTEND Surgery
DX: L72.0 Epidermal cyst (principal); L72.8 Other follicular cysts of the skin and subcutaneous tissue

== ENCOUNTER 2018-10-18 08:48 | Emergency (ER) | payer SELFPAY ==
[2018-10-18 08:48] VITALS: BMI 31.5
[2018-10-18] MEDS ORDERED: Acetaminophen 650mg/20.3ml solution UD PO STA (09:15)
--- NOTE | 2018-10-18 09:16 | C.PDOC ---
History Of Present Illness 37 y/o male presents to ED sent by clinic for evaluation of palpitations. At triage patient has low grade fever and admits to feeling mildly anxious. Patient denies chest pain, sob, nausea, vomiting, cough or any other complaints at this time. Time Seen by Provider: 10/18/18 09:03 Chief Complaint (Nursing): Palpitations History Per: Patient History/Exam Limitations: no limitations Onset/Duration Of Symptoms: Days Current Symptoms Are (Timing): Still Present Past Medical History Reviewed: Historical Data, Nursing Documentation, Vital Signs Vital Signs: Last Vital Signs Temp 99.7 F H 10/18/18 08:59 Pulse 109 H 10/18/18 08:59 Resp 18 10/18/18 08:59 BP 137/91 H 10/18/18 08:59 Pulse Ox 97 10/18/18 08:59 - Medical History PMH: Gastritis Surgical History: Endoscopy Family History: States: No Known Family Hx - Social History Hx Tobacco Use: No Hx Alcohol Use: No Hx Substance Use: No - Immunization History Hx Tetanus Toxoid Vaccination: No Hx Influenza Vaccination: No Hx Pneumococcal Vaccination: No Review Of Systems Constitutional: Positive for: Fever. Negative for: Chills Cardiovascular: Positive for: Palpitations. Negative for: Chest Pain Respiratory: Negative for: Cough, Shortness of Breath Gastrointestinal: Negative for: Nausea, Vomiting Musculoskeletal: Negative for: Back Pain Skin: Negative for: Rash Physical Exam - Physical Exam Appears: Non-toxic, No Acute Distress Skin: Warm, Dry, No Rash Head: Atraumatic, Normacephalic Eye(s): bilateral: Normal Inspection Oral Mucosa: Moist Neck: Normal ROM, Supple Cardiovascular: Rhythm Regular Respiratory: Normal Breath Sounds, No Rales, No Rhonchi, No Wheezing Gastrointestinal/Abdominal: Soft, No Tenderness, No Guarding, No Rebound Back: No CVA Tenderness Extremity: Normal ROM, No Pedal Edema, Capillary Refill (<2 seconds) Neurological/Psych: Oriented x3, Normal Speech, Normal Cognition ED Course And Treatment - Laboratory Results Result Diagrams: 10/18/18 10:04 10/18/18 10:04 ECG: Interpreted By Me, Viewed By Me ECG Rhythm: Sinus Tachycardia Rate From EC (BPM) O2 Sat by Pulse Oximetry: 97 (RA) Pulse Ox Interpretation: Normal Medical Decision Making Medical Decision Making: palpiations/ ro anxiety vs metaboic vs cardiac vs thyroid labs neg. mimimal elevated tsh, normal t4. ekg sinus. tachycarida resolved. cxr neg. no cardiac risk factor heart score low. stable for dc. Disposition - Disposition Disposition: HOME/ ROUTINE Disposition Time: 11:00 Condition: STABLE Additional Instructions: follow up with your doctor/clinic. return to er with worsening. please discuss all results with your pmd. Instructions: Palpitations Forms: [facility] (Swedish) - Clinical Impression Clinical Impression: Palpitations - Scribe Statement The provider has reviewed the documentation as recorded by the Scribkaryn Song All medical record entries made by the Angelibkaryn were at my direction and p ersonally dictated by me. I have reviewed the chart and agree that the record accurately reflects my personal performance of the history, physical exam, medical decision making, and the department course for this patient. I have also personally directed, reviewed, and agree with the discharge instructions and disposition.
[2018-10-18 10:11] LABS: BASO # 0.1 K/uL (0.0-0.2); BASO % 0.8 % (0.0-2.0); EOS # 0.1 K/uL (0.0-0.7); EOS % 1.3 % (0.0-4.0); HEMOGLOBIN 16.9 g/dL (12.0-18.0); LYMPH # 1.8 K/uL (1.0-4.3); MEAN CELL VOLUME 87.7 fL (80.0-94.0); MEAN CORPUSCULAR HEMOGLOBIN 30.1 pg (27.0-31.0); MEAN CORPUSCULAR HGB CONC 34.4 g/dL (33.0-37.0); MEAN PLATELET VOLUME 8.1 fL (7.2-11.7); MONO # 0.6 K/uL (0.0-0.8); MONO % 8.5 % (0.0-10.0); NEUT # 4.4 K/uL (1.8-7.0); NEUT % 63.4 % (50.0-75.0); NRBC % 0.1 % (0.0-2.0); RBC 5.6 Mil/uL (4.40-5.90); RED CELL DISTRIBUTION WIDTH 13.1 % (11.5-14.5); URINE BILIRUBIN NEGATIVE (NEGATIVE); URINE BLOOD NEGATIVE (NEGATIVE); URINE CLARITY Hazy (Clear); URINE COLOR Amber (YELLOW); URINE GLUCOSE (UA) NORMAL (Normal); URINE LEUKOCYTE ESTERASE NEG Leu/uL (Negative); URINE PROTEIN NEGATIVE (NEGATIVE); URINE UROBILINOGEN NORMAL mg/dL (0.2-1.0); WHITE BLOOD COUNT 6.9 K/uL (4.8-10.8)
[2018-10-18 10:21] LABS: ALB/GLOB RATIO 1.5 (1.0-2.1); ALBUMIN 4.7 g/dL (3.5-5.0); ALT/SGPT 56 U/L (21-72); AST/SGOT 37 U/L (17-59); BLOOD UREA NITROGEN 16 mg/dL (9-20); CALCIUM 9.7 mg/dl (8.6-10.4); GFR NON-AFRICAN AMERICAN > 60
[2018-10-18 10:28] LABS: INR 1.1; PARTIAL THROMBOPLASTIN TIME 34 SECONDS (21-34); PROTHROMBIN TIME 11.8 SECONDS (9.7-12.2)
[2018-10-18 10:46] LABS: D DIMER < 200 ng/mlDDU (0-243)
[2018-10-18 11:12] VITALS: BP 113/80; PULSE 84; RESP 14; TEMP 98.3
--- NOTE | 2018-10-18 13:40 | RAD ---
Date of service: 10/18/2018 HISTORY: chest pain COMPARISON: No prior. TECHNIQUE: Chest PA and lateral FINDINGS: LUNGS: Fibronodular changes likely chronic. PLEURA: No significant pleural effusion identified. No pneumothorax apparent. CARDIOVASCULAR: No aortic atherosclerotic calcification present. Normal cardiac size. No pulmonary vascular congestion. OSSEOUS STRUCTURES: No significant abnormalities. VISUALIZED UPPER ABDOMEN: Normal. OTHER FINDINGS: None. IMPRESSION: No active disease.
[2018-10-19 00:37] VITALS: O2SAT 97
== END 2018-10-18 11:37 | disposition home or self-care (01) ==
LOC: C.ER 08:48
DX: R00.2 Palpitations (principal)

== ENCOUNTER 2018-11-09 14:09 | Emergency (ER) | payer SELFPAY ==
[2018-11-09 14:09] VITALS: BMI 31.5
[2018-11-09 14:32] VITALS: BP 124/83; PULSE 90; RESP 20; TEMP 98.3; O2SAT 97
--- NOTE | 2018-11-09 15:09 | C.PDOC ---
History Of Present Illness 37 y/o male, otherwise well, presents to the ED complaining of left-sided ear pain for 1 month. States if he stands up quickly, he feels off balance. Otherwise patient denies any fever, chills, headache, ear drainage, nasal drainage, sinus pain, or decreased hearing. Patient presents appearing anxious, has had frequent visits to ED for various complaints. Time Seen by Provider: 11/09/18 14:41 Chief Complaint (Nursing): ENT Problem History Per: Patient History/Exam Limitations: None Onset/Duration Of Symptoms: Days Current Symptoms Are (Timing): Still Present Past Medical History Reviewed: Historical Data, Nursing Documentation, Vital Signs Vital Signs: Last Vital Signs Temp 98.3 F 11/09/18 14:30 Pulse 90 11/09/18 14:30 Resp 20 11/09/18 14:30 BP 124/83 11/09/18 14:30 Pulse Ox 97 11/09/18 14:30 - Medical History PMH: Gastritis Surgical History: Endoscopy Family History: States: Unknown Family Hx - Social History Hx Tobacco Use: No Hx Alcohol Use: No Hx Substance Use: No - Immunization History Hx Tetanus Toxoid Vaccination: No Hx Influenza Vaccination: No Hx Pneumococcal Vaccination: No Review Of Systems Constitutional: Negative for: Fever, Chills Eyes: Negative for: Vision Change ENT: Positive for: Ear Pain. Negative for: Ear Discharge, Nose Discharge, Nose Congestion, Other (decreased hearing) Neurological: Negative for: Headache, Dizziness Physical Exam - Physical Exam Appears: Non-toxic, No Acute Distress Skin: Normal Color, Warm, Dry Head: Atraumatic, Normacephalic Eye(s): bilateral: Normal Inspection, PERRL, EOMI Ear(s): Bilateral: TM Obscured By Wax (+ dry cerumen noted bilaterally) Oral Mucosa: Moist Throat: Normal, No Erythema Neck: Normal ROM, Supple Chest: Symmetrical Cardiovascular: Rhythm Regular, No Murmur Respiratory: Normal Breath Sounds, No Accessory Muscle Use, No Wheezing Extremity: Bilateral: Atraumatic, Normal Color And Temperature Neurological/Psych: Oriented x3, Normal Speech, Other (Ambulatory with steady gait) ED Course And Treatment O2 Sat by Pulse Oximetry: 97 (RA) Pulse Ox Interpretation: Normal Medical Decision Making Medical Decision Making: Plan: Tried to remove wax with curette, which was unsuccessful. Patient will be discharged home with rx for Debrox drops. Advised to follow up in the clinic for further evaluation. Disposition - Disposition Disposition: HOME/ ROUTINE Disposition Time: 15:06 Condition: STABLE Prescriptions: Carbamide Peroxide [Debrox 15 Ml] 1 drop AU TID #1 bottle Instructions: Ear Wax Impaction (DC) Forms: [facility] (Hungarian), Gen Discharge Inst Hungarian - POA Present On Arrival: None - Clinical Impression Clinical Impression: Cerumen impaction - Scribe Statement The provider has reviewed the documentation as recorded by the Brittany Mac Provider Attestation: All medical record entries made by the Angelibe were at my direction and personally dictated by me. I have reviewed the chart and agree that the record accurately reflects my personal performance of the history, physical exam, medical decision making, and the department course for this patient. I have also personally directed, reviewed, and agree with the discharge instructions and disposition.
== END 2018-11-09 15:19 | disposition home or self-care (01) ==
LOC: C.ER 14:09
DX: H61.23 Impacted cerumen, bilateral (principal)

== ENCOUNTER 2018-12-06 20:10 | Emergency (ER) | payer SELFPAY ==
[2018-12-06 20:11] VITALS: BMI 31.5
[2018-12-06 20:35] VITALS: BP 136/88; PULSE 95; RESP 20; TEMP 98.5; O2SAT 99
--- NOTE | 2018-12-06 21:06 | C.PDOC ---
History Of Present Illness 38 year old male presents to the ED c/o blurry vision to both his eyes after using Flonase spray. Patient reports he has been using the nasal spray for 6 days and the blurry vision has occurred after each use. Patient requesting change of nasal spray. Patient denies fever, chills, nausea, vomit, blurry vision now, headache, injury, fall, trauma. Time Seen by Provider: 12/06/18 20:44 Chief Complaint (Nursing): Eye Problem History Per: Patient History/Exam Limitations: no limitations Onset/Duration Of Symptoms: Days (6) Current Symptoms Are (Timing): Better Injury To Eye?: No Quality: Other Associated Symptoms: Decreased Vision Recent travel outside of the [place]: No Additional History Per: Patient Past Medical History Reviewed: Historical Data, Nursing Documentation, Vital Signs Vital Signs: Last Vital Signs Temp 98.5 F 12/06/18 20:26 Pulse 95 H 12/06/18 20:26 Resp 20 12/06/18 20:26 BP 136/88 12/06/18 20:26 Pulse Ox 99 12/06/18 20:26 - Medical History PMH: Gastritis Surgical History: Cholecystectomy, Endoscopy Family History: States: Unknown Family Hx - Social History Hx Tobacco Use: No Hx Alcohol Use: No Hx Substance Use: No - Immunization History Hx Tetanus Toxoid Vaccination: No Hx Influenza Vaccination: No Hx Pneumococcal Vaccination: No Review Of Systems Constitutional: Negative for: Fever, Chills Eyes: Positive for: Vision Change (blurry vision) ENT: Negative for: Nose Discharge, Nose Congestion Cardiovascular: Negative for: Chest Pain, Palpitations Respiratory: Negative for: Shortness of Breath Gastrointestinal: Negative for: Nausea, Vomiting Skin: Negative for: Rash Neurological: Negative for: Weakness, Numbness, Headache, Dizziness Physical Exam - Physical Exam Appears: Non-toxic, No Acute Distress Skin: Normal Color, Warm, Dry Head: Atraumatic, Normacephalic Eye(s): bilateral: Normal Inspection, PERRL, EOMI, Other (no conjuctival erythemak, no discharge, visual acuity 20/20 ) Ear(s): Bilateral: Normal Nose: No Discharge Oral Mucosa: Moist Throat: Normal, No Erythema, No Exudate Neck: Normal ROM, Supple Chest: Symmetrical Cardiovascular: Rhythm Regular Respiratory: Normal Breath Sounds Extremity: Normal ROM Neurological/Psych: Oriented x3, Normal Speech, Normal Cognition Gait: Steady ED Course And Treatment O2 Sat by Pulse Oximetry: 99 (ON RA) Pulse Ox Interpretation: Normal Progress Note: On reassessment, patient is now asymptomatic and is in no acute distress. Patient was instructed to follow up with physician/clinic in 1-2 days for further evaluation. Reassessment Condition: Improved Disposition Counseled Patient/Family Regarding: Diagnosis, Need For Followup - Disposition Referrals: [facility] [Outside] Disposition: HOME/ ROUTINE Disposition Time: 21:04 Condition: STABLE Additional Instructions: Please follow up with PMD for change of nasal spray May use OTC AFRIN if needed Follow up with PMD Return to ER if worse Instructions: Side Effects From Medicines Forms: [id number] (French) Print Language: LATVIAN - Clinical Impression Clinical Impression: Blurred vision - PA / [employer] / Resident Statement MD/DO has reviewed & agrees with the documentation as recorded. - Scribe Statement The provider has reviewed the documentation as recorded by the Scribe Prakash Mtz All medical record entries made by the Scribe were at my direction and personally dictated by me. I have reviewed the chart and agree that the record accurately reflects my personal performance of the history, physical exam, medical decision making, and the department course for this patient. I have also personally directed, reviewed, and agree with the discharge instructions and disposition.
== END 2018-12-06 21:23 | disposition home or self-care (01) ==
LOC: C.ER 20:10
DX: H53.8 Other visual disturbances (principal)